=== PATIENT | female | born 1955 | race Caucasian/White ===

== ENCOUNTER 2025-04-09 11:35 | Emergency (ER) | payer MEDICARE | END 2025-04-09 14:26 | disposition home or self-care (01) | LOC: JP.ED 11:35 | DX: S30.0XXA Contusion of lower back and pelvis, initial encounter (principal); E78.00 Pure hypercholesterolemia, unspecified; Z79.899 Other long term (current) drug therapy; W01.198A Fall on same level from slipping, tripping and stumbling with subsequent striking against other object, initial encounter; Y93.89 Activity, other specified | CPT/HCPCS: 72170; 72170-26; 72220; 72220-26; 99283 ==